=== PATIENT | female | born 1985 | race Caucasian/White ===

== ENCOUNTER 2022-07-11 11:41 | Day surgery (SDC) | payer BC ==
[2022-07-11] MEDS ORDERED: Depo-Medrol 40 MG/ML IM ONE (11:42)
[2022-07-11] MEDS ORDERED: BUPIVACAINE 0.5% VIAL IJ ONE (11:42)
[2022-07-11] MEDS ORDERED: DIPRIVAN 200 MG/20 ML IV ONE (13:50)
[2022-07-11] MEDS ORDERED: Lactated Ringers 1,000 ML IV ONE (15:41)
--- NOTE | 2022-07-11 16:49 | XRAY ---
Indication: Bilateral SI joint injection. Intraoperative fluoroscopy provided for 18 seconds. 5 digital spot image submitted for interpretation demonstrates posterior needle tip projecting over the left and right SI joint. Correlate with intraoperative findings/report.
--- NOTE | 2022-07-11 16:55 | XRAY ---
18 seconds of fluoroscopy was used in surgery for a bilateral sacroiliac joint injection.
== END 2022-07-11 14:20 | disposition home or self-care (01) ==
LOC: SDC-PAIN 11:41
PROVIDERS: ATTEND Psychiatry & Neurology Pain Medicine
DX: M46.1 Sacroiliitis, not elsewhere classified (principal); Z79.899 Other long term (current) drug therapy
CPT/HCPCS: 27096; 72202; 77002; 81025; J1030; J2704; G0260

== ENCOUNTER 2022-08-29 10:13 | Day surgery (SDC) | payer BC ==
[2022-08-29] MEDS ORDERED: Depo-Medrol 40 MG/ML IM ONE (10:14)
[2022-08-29] MEDS ORDERED: LIDOCAINE HCL 2% 100 MG/5 ML IJ ONE (10:14)
[2022-08-29] MEDS ORDERED: DIPRIVAN 200 MG/20 ML IV ONE (12:00)
--- NOTE | 2022-08-29 13:00 | XRAY ---
Indication: Bilateral L4-S1 MBB. Intraoperative fluoroscopy provided for 12 seconds. Single digital spot images submitted for interpretation demonstrates posterior needle tips projecting over the expected left and right L4-S1 nerve roots. Correlate with intraoperative findings/report.
--- NOTE | 2022-08-29 13:09 | XRAY ---
12 seconds of fluoroscopy was used in surgery for a bilateral L4-S1 MBB.
[2022-08-29] MEDS ORDERED: Lactated Ringers 1,000 ML IV ONE (14:04)
== END 2022-08-29 12:30 | disposition home or self-care (01) ==
LOC: SDC-PAIN 10:13
PROVIDERS: ATTEND Psychiatry & Neurology Pain Medicine
DX: M47.816 Spondylosis without myelopathy or radiculopathy, lumbar region (principal); Z79.899 Other long term (current) drug therapy
CPT/HCPCS: 64493; 64494; 72020; 77002; 81025; J1030; J2704

== ENCOUNTER 2022-09-26 12:01 | Day surgery (SDC) | payer BC ==
[2022-09-26] MEDS ORDERED: Depo-Medrol 40 MG/ML IM ONE (12:02)
[2022-09-26] MEDS ORDERED: BUPIVACAINE 0.5% VIAL IJ ONE (12:02)
[2022-09-26] MEDS ORDERED: DIPRIVAN 200 MG/20 ML IV ONE (13:15)
[2022-09-26] MEDS ORDERED: Lactated Ringers 1,000 ML IV ONE (14:28)
--- NOTE | 2022-09-26 14:45 | XRAY ---
Indication: Bilateral L4-S1 MBB. Intraoperative fluoroscopy provided for 19 seconds. Single digital spot image submitted for interpretation demonstrates posterior needle tips projecting over the expected left and right L4-S1 nerve roots. Correlate with intraoperative findings/report.
--- NOTE | 2022-09-26 14:45 | XRAY ---
19 seconds of fluoroscopy was used in surgery for a bilateral L4-S1 MBB.
== END 2022-09-26 13:50 | disposition home or self-care (01) ==
LOC: SDC-PAIN 12:01
PROVIDERS: ATTEND Psychiatry & Neurology Pain Medicine
DX: M47.816 Spondylosis without myelopathy or radiculopathy, lumbar region (principal); Z79.899 Other long term (current) drug therapy
CPT/HCPCS: 64493; 64494; 72020; 77002; 81025; J1030; J2704

== ENCOUNTER 2022-10-24 13:18 | Day surgery (SDC) | payer BC ==
[2022-10-24] MEDS ORDERED: BUPIVACAINE 0.5% VIAL IJ ONE (13:19)
[2022-10-24] MEDS ORDERED: LIDOCAINE HCL 1% 50 MG/5 ML VL PF IJ ONE (13:19)
[2022-10-24] MEDS ORDERED: Depo-Medrol 40 MG/ML IM ONE (13:19)
[2022-10-24 14:00] LABS: HCG URINE TEST NEGATIVE (NEGATIVE)
[2022-10-24] MEDS ORDERED: DIPRIVAN 200 MG/20 ML IV ONE ×2 (14:07→14:52)
--- NOTE | 2022-10-24 15:24 | XRAY ---
Indication: Left L4-S1 RFA. Intraoperative fluoroscopy provided for 16 seconds. 4 digital spot image submitted for interpretation demonstrates posterior needle tips projecting over the expected left L4-S1 nerve roots. Correlate with intraoperative findings/report.
[2022-10-24] MEDS ORDERED: Lactated Ringers 1,000 ML IV ONE (15:47)
--- NOTE | 2022-10-24 16:43 | XRAY ---
16 seconds of fluoroscopy was used in surgery for a left L4-S1 RFA.
== END 2022-10-24 15:25 | disposition home or self-care (01) ==
LOC: SDC-PAIN 13:18
PROVIDERS: ATTEND Psychiatry & Neurology Pain Medicine
DX: M47.817 Spondylosis without myelopathy or radiculopathy, lumbosacral region (principal); Z79.899 Other long term (current) drug therapy
CPT/HCPCS: 36415; 64635; 64636; 72100; 77002; 81025; J1030; J2001; J2704

== ENCOUNTER 2022-10-31 13:02 | Day surgery (SDC) | payer BC ==
[2022-10-31] MEDS ORDERED: LIDOCAINE HCL 1% 50 MG/5 ML VL PF IJ ONE (13:03)
[2022-10-31] MEDS ORDERED: Depo-Medrol 40 MG/ML IM ONE (13:03)
[2022-10-31] MEDS ORDERED: BUPIVACAINE 0.5% VIAL IJ ONE (13:03)
[2022-10-31 13:46] LABS: HCG URINE TEST NEGATIVE (NEGATIVE)
[2022-10-31] MEDS ORDERED: DIPRIVAN 200 MG/20 ML IV ONE ×2 (14:37→14:48)
[2022-10-31] MEDS ORDERED: Lactated Ringers 1,000 ML IV ONE (15:39)
--- NOTE | 2022-10-31 16:29 | XRAY ---
Indication: Right L4-S1 RFA. Intraoperative fluoroscopy provided for 24 seconds. 4 digital spot image submitted for interpretation demonstrates posterior needle tips projecting over the expected right L4-S1 nerve roots. Correlate with intraoperative findings/report.
--- NOTE | 2022-10-31 16:37 | XRAY ---
24 seconds of fluoroscopy was used in surgery for a right L4-S1 RFA.
== END 2022-10-31 15:17 | disposition home or self-care (01) ==
LOC: SDC-PAIN 13:02
PROVIDERS: ATTEND Psychiatry & Neurology Pain Medicine
DX: M47.816 Spondylosis without myelopathy or radiculopathy, lumbar region (principal); Z79.899 Other long term (current) drug therapy
CPT/HCPCS: 36415; 64635; 64636; 72100; 77002; 81025; J1030; J2001; J2704

== ENCOUNTER 2023-02-20 11:13 | Day surgery (SDC) | payer BC ==
[2023-02-20] MEDS ORDERED: Depo-Medrol 40 MG/ML IM ONE (11:14)
[2023-02-20] MEDS ORDERED: Sodium Chloride 0.9(Preservative Free) 10 ML IJ ONE (11:14)
[2023-02-20 12:53] LABS: HCG URINE TEST NEGATIVE (NEGATIVE)
[2023-02-20] MEDS ORDERED: DIPRIVAN 200 MG/20 ML IV ONE (13:52)
--- NOTE | 2023-02-20 14:50 | XRAY ---
Indication: Bilateral SI joint injection. Intraoperative fluoroscopy provided for 20 seconds. 4 digital spot image submitted for interpretation demonstrates posterior needle tip projecting over the expected left and right SI joint. Correlate with intraoperative findings/report.
--- NOTE | 2023-02-20 14:59 | XRAY ---
20 seconds of fluoroscopy was used in surgery for a bilateral sacroiliac joint injection.
[2023-02-20] MEDS ORDERED: Lactated Ringers 1,000 ML IV ONE (15:01)
== END 2023-02-20 14:20 | disposition home or self-care (01) ==
LOC: SDC-PAIN 11:13
PROVIDERS: ATTEND Psychiatry & Neurology Pain Medicine
DX: M46.1 Sacroiliitis, not elsewhere classified (principal); Z79.899 Other long term (current) drug therapy
CPT/HCPCS: 27096; 72202; 77002; 81025; J1030; J2704; G0260

== ENCOUNTER 2023-04-24 14:05 | Day surgery (SDC) | payer BC ==
[2023-04-24] MEDS ORDERED: Depo-Medrol 40 MG/ML IM ONE (14:06)
[2023-04-24] MEDS ORDERED: LIDOCAINE HCL 1% 50 MG/5 ML VL PF IJ ONE (14:06)
[2023-04-24] MEDS ORDERED: Sodium Chloride 0.9(Preservative Free) 10 ML IJ ONE (14:06)
[2023-04-24 14:55] LABS: HCG URINE TEST NEGATIVE (NEGATIVE)
[2023-04-24] MEDS ORDERED: DIPRIVAN 200 MG/20 ML IV ONE ×2 (16:18→16:36)
[2023-04-24] MEDS ORDERED: Versed 2 MG/2 ML Injection ONE (16:19)
--- NOTE | 2023-04-24 17:04 | XRAY ---
Indication: Lumbar CHRISTINE. Intraoperative fluoroscopy provided for 22 seconds. 3 digital spot image submitted for interpretation demonstrates posterior needle tip projecting posterior to lumbosacral junction interspace. Small amount of contrast injected for needle tip placement. Correlate with intraoperative findings/report.
--- NOTE | 2023-04-24 17:21 | XRAY ---
22 seconds of fluoroscopy was used in surgery for a lumbar CHRISTINE.
[2023-04-24] MEDS ORDERED: Lactated Ringers 1,000 ML IV ONE (17:33)
== END 2023-04-24 16:54 | disposition home or self-care (01) ==
LOC: SDC-PAIN 14:05
PROVIDERS: ATTEND Psychiatry & Neurology Pain Medicine
DX: M54.16 Radiculopathy, lumbar region (principal); Z79.899 Other long term (current) drug therapy
CPT/HCPCS: 62323; 72100; 77003; 81025; J1030; J2001; J2250; J2704; Q9966

== ENCOUNTER 2024-04-01 14:52 | Day surgery (SDC) | payer BC ==
[2024-04-01] MEDS ORDERED: Sodium Chloride 0.9(Preservative Free) 10 ML IJ ONE (14:53)
[2024-04-01] MEDS ORDERED: LIDOCAINE HCL 1% AMPUL 5 ML IJ ONE (14:53)
[2024-04-01 15:47] LABS: HCG URINE TEST NEGATIVE (NEGATIVE)
[2024-04-01] MEDS ORDERED: CEFAZOLIN 2 GM/100 ML NaCl 2 GM/100 ML IVPB IV ONE (17:06)
[2024-04-01] MEDS ORDERED: Lactated Ringers 1,000 ML IV ONE (17:15)
[2024-04-01] MEDS ORDERED: DIPRIVAN 200 MG/20 ML IV ONE ×2 (17:30→17:47)
[2024-04-01] MEDS ORDERED: BACIGUENT 30 GM ONE (17:42)
--- NOTE | 2024-04-01 19:37 | XRAY ---
Indication: Spinal cord stimulator trial. Intraoperative fluoroscopy provided for 3 minutes 6 seconds. 5 digital spot image submitted for interpretation demonstrates introducer needle tip posterior to T12. Single epidural lead inserted with tip positioned approximately T7. Correlate with intraoperative findings/report.
--- NOTE | 2024-04-02 11:27 | XRAY ---
Three minutes and 6 seconds of fluoroscopy was used in surgery for a spinal cord stimulator trial.
== END 2024-04-01 18:46 | disposition home or self-care (01) ==
LOC: SDC-PAIN 14:52
PROVIDERS: ATTEND Psychiatry & Neurology Pain Medicine
DX: M96.1 Postlaminectomy syndrome, not elsewhere classified (principal)
CPT/HCPCS: 63650; 72100; 77002; 81025; C1897; J0690; J2704; A9270-GY